=== PATIENT | female | born 1985 ===

== ENCOUNTER 2021-04-27 14:38 | Emergency (ER) | payer MEDICAID ==
[~2021-04-27] VITALS: Ht 160 cm; Wt 65.8 kg
[2021-04-27] MEDS ORDERED: HYDROCODON-ACE1 EA10 PO (18:00)
== END 2021-04-27 19:11 | disposition home or self-care (01) ==
LOC: ED 14:38
DX: S01.01XA Laceration without foreign body of scalp, initial encounter (principal); S61.412A Laceration without foreign body of left hand, initial encounter; S61.512A Laceration without foreign body of left wrist, initial encounter; S16.1XXA Strain of muscle, fascia and tendon at neck level, initial encounter; Z20.822 Contact with and (suspected) exposure to COVID-19; V49.9XXA Car occupant (driver) (passenger) injured in unspecified traffic accident, initial encounter
CPT/HCPCS: 12005; 70450; 71260; 72125; 73130; 74177; 80053; 83690; 84703; 85025; 86850; 86900; 86901; 90471; 90715; 99284-25; C9803; G0480; J1170; J1885; Q9967; U0003